=== PATIENT | female | born 1965 | race Caucasian/White ===

== ENCOUNTER 2018-08-10 10:51 | Emergency (ER) | payer MEDICARE ==
[~2018-08-10] VITALS: Ht 160 cm; Wt 142.9 kg
[2018-08-10] MEDS ORDERED: ONDANSETRON PF 4 MG/2 ML VIAL. IV ONE (11:45)
--- NOTE | 2018-08-10 12:15 | PHYS DOC ---
Past Medical History Past Medical History: Asthma, CHF, COPD, GERD, High Cholesterol, Renal Disease Additional Past Medical Histor: CHRONIC RENAL DISEASE,SLEEP APNEA ,OBESITY, AORTIC STENSIS Past Surgical History: Pacemaker, Tubal ligation Additional Past Surgical Histo: AORTIC STENTS (for congenital coarctation) (, CARDIAC CATHS Smoking: Quit Greater Than 1 Year Alcohol Use: None Drug Use: None Adult General Chief Complaint Chief Complaint: NAUSEA/VOMITING/DIARRHA HPI HPI Patient is a pleasant 53-year-old female who presents to the emergency department for evaluation. The patient states that she came down to [place] on August 07, from [place], to visit her family for the holidays. She states that today she arrived, she began having multiple episodes of watery diarrhea. She has not really had any abdominal discomfort, other than some "heartburn, which developed over the past 24 hours, along with multiple episodes of vomiting. She has not had any bloody emesis or bloody stools. She denies any chest pain, shortness of breath, dizziness or lightheadedness. She does have a history of COPD and is on oxygen chronically. Her abdomen does appear somewhat distended, with the patient states that this is her baseline, and she exhibits this to her body habitus. There are no alleviating or exacerbating factors to her symptoms otherwise. Review of Systems Review of Systems Constitutional: Denies fever or chills [] Eyes: Denies change in visual acuity, redness, or eye pain [] HENT: Denies nasal congestion or sore throat [] Respiratory: Denies cough or shortness of breath [] Cardiovascular: No additional information not addressed in HPI [] GI: No additional information not addressed in HPI [] : Denies dysuria or hematuria [] Musculoskeletal: Denies back pain or joint pain [] Integument: Denies rash or skin lesions [] Neurologic: Denies headache, focal weakness or sensory changes [] Endocrine: Denies polyuria or polydipsia [] All other systems were reviewed and found to be within normal limits, except as documented in this note. Current Medications Current Medications Current Medications Medications (Trade) Dose Ordered Sig/Diogenes Start Time Stop Time Status Last Admin Dose Admin Ondansetron HCl (Zofran) 4 mg 1X ONCE 08/10/18 11:45 08/10/18 11:55 DC 08/10/18 12:38 4 MG Sodium Chloride 500 ml @ 500 mls/hr 1X ONCE 08/10/18 13:30 08/10/18 14:29 DC Allergies Allergies Allergies Coded Allergies Type Severity Reaction Last Updated Verified clarithromycin Allergy Severe HIVES 08/10/18 Yes iodine Allergy Severe RASH DISCOLORATION 08/10/18 Yes latex Allergy Severe HIVES 08/10/18 Yes metronidazole Allergy Severe WEAKNESS 08/10/18 Yes Physical Exam Physical Exam PHYSICAL EXAM: CONSTITUTIONAL: Well developed, well nourished HEAD: normocephalic, atraumatic EENT: PERRL, EOMI. Conjunctivae normal color, sclerae non-icteric; moist mucous membranes. NECK: Supple, non-tender; no meningismus. LUNGS: Lungs CTA, breathing even and unlabored. Normal air movement. HEART: Regular rate and rhythm, no murmur CHEST: No deformity; non-tender ABDOMEN: The abdomen is soft, mildly distended, and relatively nontender, with normal bowel sounds, without rebound or guarding. No masses or bruits. EXTREM: Normal ROM; no deformity, no calf tenderness. Normal pulses palpable in all extremities. There is mild bilateral non-pitting pedal edema. SKIN: No rash; no diaphoresis NEURO: Alert; normal speech and cognition; CN's grossly intact; strength grossly intact without focal deficit. BACK: No CVA TTP. Current Patient Data Vital Signs Vital Signs Date Time Temp Pulse Resp B/P (MAP) Pulse Ox O2 Delivery O2 Flow Rate FiO2 08/10/18 12:00 97.4 90 20 141/64 (89) 95 Nasal Cannula 2.0 97.4 Lab Values Laboratory Tests Test 08/10/18 12:00 08/10/18 13:40 White Blood Count 6.2 x10^3/uL (4.0-11.0) Red Blood Count 4.16 x10^6/uL (3.50-5.40) Hemoglobin 13.0 g/dL (12.0-15.5) Hematocrit 37.9 % (36.0-47.0) Mean Corpuscular Volume 91 fL (79-100) Mean Corpuscular Hemoglobin 31 pg (25-35) Mean Corpuscular Hemoglobin Concent 35 g/dL (31-37) Red Cell Distribution Width 14.8 % (11.5-14.5) H Platelet Count 309 x10^3/uL (140-400) Neutrophils (%) (Auto) 82 % (31-73) H Lymphocytes (%) (Auto) 10 % (24-48) L Monocytes (%) (Auto) 6 % (0-9) Eosinophils (%) (Auto) 2 % (0-3) Basophils (%) (Auto) 0 % (0-3) Neutrophils # (Auto) 5.1 x10^3uL (1.8-7.7) Lymphocytes # (Auto) 0.6 x10^3/uL (1.0-4.8) L Monocytes # (Auto) 0.4 x10^3/uL (0.0-1.1) Eosinophils # (Auto) 0.1 x10^3/uL (0.0-0.7) Basophils # (Auto) 0.0 x10^3/uL (0.0-0.2) Sodium Level 139 mmol/L (136-145) Potassium Level 3.4 mmol/L (3.5-5.1) L Chloride Level 99 mmol/L (98-107) Carbon Dioxide Level 30 mmol/L (21-32) Anion Gap 10 (6-14) Blood Urea Nitrogen 14 mg/dL (7-20) Creatinine 0.9 mg/dL (0.6-1.0) Estimated GFR (Cockcroft-Gault) 65.5 BUN/Creatinine Ratio 16 (6-20) Glucose Level 120 mg/dL (70-99) H Calcium Level 8.8 mg/dL (8.5-10.1) Total Bilirubin 0.5 mg/dL (0.2-1.0) Aspartate Amino Transferase (AST) 15 U/L (15-37) Alanine Aminotransferase (ALT) 32 U/L (14-59) Alkaline Phosphatase 60 U/L (46-116) Troponin I Quantitative < 0.017 ng/mL (0.000-0.055) Total Protein 7.4 g/dL (6.4-8.2) Albumin 3.6 g/dL (3.4-5.0) Albumin/Globulin Ratio 0.9 (1.0-1.7) L Lipase 71 U/L (73-393) L Urine Collection Type Unknown Urine Color Yellow Urine Clarity Clear Urine pH 6.5 Urine Specific [place] 1.025 Urine Protein Negative mg/dL (NEG-TRACE) Urine Glucose (UA) Negative mg/dL (NEG) Urine Ketones (Stick) Trace mg/dL (NEG) Urine Blood Negative (NEG) Urine Nitrite Negative (NEG) Urine Bilirubin Small (NEG) Urine Urobilinogen Dipstick 1.0 mg/dL (0.2 mg/dL) Urine Leukocyte Esterase Small (NEG) Urine RBC 0 /HPF (0-2) Urine WBC 1-4 /HPF (0-4) Urine Squamous Epithelial Cells Many /LPF Urine Bacteria Many /HPF (0-FEW) Urine Mucus Slight /LPF Laboratory Tests 08/10/18 12:00 Laboratory Tests 08/10/18 12:00 EKG EKG [Normal sinus rhythm at a rate of 82 beats for minute, left axis deviation, left ventricular hypertrophy with some repolarization abnormality without acute ischemic ST/T changes] Radiology/Procedures Radiology/Procedures [PROCEDURE: ACUTE ABDOMEN SERIES Indication: Abdominal pain, diarrhea and vomiting for 3 days TECHNIQUE: AP chest and multiple views of the abdomen and pelvis COMPARISON: None FINDINGS: Heart is mild enlarged in size. Lungs are clear. No pneumothorax or pleural effusion. Mild prominence of pulmonary vasculature. Visualized bony thorax is within normal limits. Scattered dilated small bowel loops are seen, nonspecific. No evidence of pneumoperitoneum. Visualized bones are within normal limits. IMPRESSION: 1. Scattered loops of small bowel, nonspecific. Developing small bowel obstruction not ruled out. 2. Mild cardiomegaly with pulmonary vascular congestion.] PROCEDURE: CT ABDOMEN PELVIS WO CONTRAST PQRS Compliance statement: One or more of the following individualized dose reduction techniques were utilized for this examination: 1. Automated exposure control. 2. Adjustment of the mA and/or kV according to patient size. 3. Use of iterative reconstruction technique. Indication:VOMITING DIARRHEA NO CONTRAST NO PREV TECHNIQUE: CT abdomen and pelvis without IV contrast with multiplanar reformats. COMPARISON: None FINDINGS: Limited evaluation of solid abdominal and pelvic organs due to lack of IV contrast. Heart is normal in size. Partially visualized pacemaker leads in the right heart. 3 mm nodular opacity in the right lower lobe. 3 mm nodule in the left lower lobe. Diffuse hepatic steatosis. Liver is normal in morphology. Spleen is nonenlarged. Status post cholecystectomy. Noncontrast appearance of the pancreas and adrenals within normal limits. Punctate nonobstructing right renal stone. 5 mm nonobstructing left renal stone. No enlarged retroperitoneal or pelvic adenopathy. No free pelvic fluid or ascites. Small fat-containing left inguinal hernia. Diffusely fluid-filled colon and small bowel loops are seen. No pneumoperitoneum or pneumatosis intestinalis. Urinary bladder demonstrates no radiopaque stones. Trace amount of air is seen in the bladder. Correlate for prior catheterization. Anteverted uterus. There is no bowel wall thickening or surrounding inflammatory changes. No suspicious bony lesion. IMPRESSION: Limited evaluation of solid abdominal and pelvic organs due to lack of IV contrast. 1. Diffusely distended fluid-filled small and large bowel loops, nonspecific and correlates with the history of diarrhea. 2. Nonobstructing bilateral renal stones. 3. Hepatic steatosis. Course & Med Decision Making Course & Med Decision Making Pertinent Labs and Imaging studies reviewed. (See chart for details) [3:10 PM: The patient's condition remains stable. She is feeling somewhat better. She has had no further vomiting or diarrhea in the emergency department. She feels well enough to go home. I discussed test results with the patient, the use of antinausea medications and Imodium, and return precautions were discussed in detail.] Dragon Disclaimer Dragon Disclaimer This electronic medical record was generated, in whole or in part, using a voice recognition dictation system. Departure Departure Impression: Primary Impression: Nausea vomiting and diarrhea Disposition: 01 HOME, SELF-CARE Condition: STABLE Referrals: NO PCP (PCP) Patient Instructions: Viral Gastroenteritis Additional Instructions: Imodium, available [id number], as needed for diarrhea. Return to medical care for any other new, or concerning symptoms, development of worsening vomiting or diarrhea, lethargy, fever, abdominal pain, dizziness or lightheadedness, or any other new, or concerning symptoms. Scripts Ondansetron Hcl (ZOFRAN) 4 Mg Tablet 1 TAB PO Q6HRS PRN for NAUSEA/VOMITING, #20 TAB Prov: ANY MONSON MD 08/10/18 ANY MONSON MD Aug 10, 2018 12:15
[2018-08-10 12:19] LABS: BASO % 0 % (0-3); EOS # 0.1 x10^3/uL (0.0-0.7); EOS % 2 % (0-3); HEMATOCRIT 37.9 % (36.0-47.0); LYMPH # 0.6 x10^3/uL (1.0-4.8); LYMPH % 10 % (24-48); MEAN CORPUSCULAR HEMOGLOBIN 31 pg (25-35); MEAN CORPUSCULAR HGB CONC 35 g/dL (31-37); MEAN CORPUSCULAR VOLUME 91 fL (79-100); MONO # 0.4 x10^3/uL (0.0-1.1); MONO % 6 % (0-9); NEUT # 5.1 x10^3uL (1.8-7.7); NEUT % 82 % (31-73); PLATELET COUNT 309 x10^3/uL (140-400); RED BLOOD COUNT 4.16 x10^6/uL (3.50-5.40); RED CELL DISTRIBUTION WIDTH 14.8 % (11.5-14.5); WHITE BLOOD COUNT 6.2 x10^3/uL (4.0-11.0)
[2018-08-10 12:27] LABS: CALCIUM 8.8 mg/dL (8.5-10.1); CREATININE 0.9 mg/dL (0.6-1.0); GFR 65.5; POTASSIUM 3.4 mmol/L (3.5-5.1)
[2018-08-10 12:30] LABS: ALBUMIN 3.6 g/dL (3.4-5.0); ALBUMIN/GLOBULIN RATIO 0.9 (1.0-1.7); TOTAL BILIRUBIN 0.5 mg/dL (0.2-1.0); TOTAL PROTEIN 7.4 g/dL (6.4-8.2)
--- NOTE | 2018-08-10 12:34 | RAD ---
Indication: Abdominal pain, diarrhea and vomiting for 3 days TECHNIQUE: AP chest and multiple views of the abdomen and pelvis COMPARISON: None FINDINGS: Heart is mild enlarged in size. Lungs are clear. No pneumothorax or pleural effusion. Mild prominence of pulmonary vasculature. Visualized bony thorax is within normal limits. Scattered dilated small bowel loops are seen, nonspecific. No evidence of pneumoperitoneum. Visualized bones are within normal limits. IMPRESSION: 1. Scattered loops of small bowel, nonspecific. Developing small bowel obstruction not ruled out. 2. Mild cardiomegaly with pulmonary vascular congestion. Electronically signed by: Link Sandhu DO (08/10/2018 12:30 PM) [facility]
[2018-08-10] MEDS ORDERED: IV NORMAL SALINE 500ML BAG 500 ML IV ONE (13:30)
[2018-08-10 13:51] LABS: BILIRUBIN,URINE SMALL (NEG); CLARITY,URINE CLEAR; COLOR,URINE YELLOW; NITRITE,URINE NEGATIVE (NEG); PH,URINE 6.5; PROTEIN,URINE NEGATIVE (NEG-TRACE)
[2018-08-10 14:13] LABS: BACTERIA,URINE MANY /HPF (0-FEW); RBC,URINE 0 /HPF (0-2); SQUAMOUS EPITHELIAL CELL,UR MANY /LPF
--- NOTE | 2018-08-10 14:39 | RAD ---
PQRS Compliance statement: One or more of the following individualized dose reduction techniques were utilized for this examination: 1. Automated exposure control. 2. Adjustment of the mA and/or kV according to patient size. 3. Use of iterative reconstruction technique. Indication:VOMITING DIARRHEA NO CONTRAST NO PREV TECHNIQUE: CT abdomen and pelvis without IV contrast with multiplanar reformats. COMPARISON: None FINDINGS: Limited evaluation of solid abdominal and pelvic organs due to lack of IV contrast. Heart is normal in size. Partially visualized pacemaker leads in the right heart. 3 mm nodular opacity in the right lower lobe. 3 mm nodule in the left lower lobe. Diffuse hepatic steatosis. Liver is normal in morphology. Spleen is nonenlarged. Status post cholecystectomy. Noncontrast appearance of the pancreas and adrenals within normal limits. Punctate nonobstructing right renal stone. 5 mm nonobstructing left renal stone. No enlarged retroperitoneal or pelvic adenopathy. No free pelvic fluid or ascites. Small fat-containing left inguinal hernia. Diffusely fluid-filled colon and small bowel loops are seen. No pneumoperitoneum or pneumatosis intestinalis. Urinary bladder demonstrates no radiopaque stones. Trace amount of air is seen in the bladder. Correlate for prior catheterization. Anteverted uterus. There is no bowel wall thickening or surrounding inflammatory changes. No suspicious bony lesion. IMPRESSION: Limited evaluation of solid abdominal and pelvic organs due to lack of IV contrast. 1. Diffusely distended fluid-filled small and large bowel loops, nonspecific and correlates with the history of diarrhea. 2. Nonobstructing bilateral renal stones. 3. Hepatic steatosis. Electronically signed by: Link Sandhu DO (08/10/2018 2:35 PM) [facility]
[2018-08-10] MEDS ORDERED: ONDA4TAB7 PO (15:16)
[2018-08-10 16:00] VITALS: BP 125/78
--- NOTE | 2018-08-10 17:55 | EKG ---
[facility] [address] [place] [address] Test Date: 2018-08-10 Test Time: 11:56:58 Pat Name: MAYI COLLAZO Department: Room: Gender: F Scalloper: : 1965 Requested By: ANY MONSON Order Number: [id number] Reading MD: Michael Mohamud Measurements Intervals [place] Rate: 82 P: 180 PA: 148 QRS: -42 QRSD: 122 T: 49 QT: 392 QTc: 461 Interpretive Statements SINUS RHYTHM ABNORMAL LEFT AXIS DEVIATION LEFT VENTRICULAR HYPERTROPHY T ABNORMALITY IN HIGH LATERAL LEADS ABNORMAL ECG RI6.01 No previous ECG available for comparison Electronically Signed On 08-18-2018 8:08:33 [employer] by Michael Mohamud
== END 2018-08-10 16:19 | disposition home or self-care (01) ==
LOC: ER 10:51
DX: R11.2 Nausea with vomiting, unspecified (principal); R19.7 Diarrhea, unspecified; E78.00 Pure hypercholesterolemia, unspecified; K21.9 Gastro-esophageal reflux disease without esophagitis; J44.9 Chronic obstructive pulmonary disease, unspecified; N18.9 Chronic kidney disease, unspecified; Z95.0 Presence of cardiac pacemaker; Z98.51 Tubal ligation status; Z95.5 Presence of coronary angioplasty implant and graft; Z87.891 Personal history of nicotine dependence; Z86.79 Personal history of other diseases of the circulatory system; Z91.041 Radiographic dye allergy status; Z91.040 Latex allergy status; Z88.1 Allergy status to other antibiotic agents; Z88.8 Allergy status to other drugs, medicaments and biological substances
CPT/HCPCS: 36415; 74022; 74176; 80053; 81001; 83690; 84484; 85025; 87086; 93005; 96374; 99284; J2405; P9612